=== PATIENT | female | born 1970 | race Two or more races ===

== ENCOUNTER 2016-09-14 15:15 | Emergency (ER) | payer BC ==
[~2016-09-14] VITALS: Ht 165.1 cm; Wt 86.2 kg
[2016-09-14 16:59] VITALS: BP 118/65
== END 2016-09-14 17:18 | disposition home or self-care (01) ==
LOC: ER 15:16
DX: J22 Unspecified acute lower respiratory infection (principal); Z88.5 Allergy status to narcotic agent; F17.200 Nicotine dependence, unspecified, uncomplicated
CPT/HCPCS: 71020; 87804; 99285; A4606; Z7610; 87400

== ENCOUNTER 2022-12-05 22:14 | Emergency (ER) | payer BC ==
[~2022-12-05] VITALS: Ht 165.1 cm; Wt 86.6 kg
--- NOTE | 2022-12-05 22:49 | NUR ---
PT BIBSELF C/O BILATERAL FEET SWELLING X 2 WEEKS. PT DENIES TRAUMA. PT AAOX4 BREATHING EVENLY AND UNLABORED. PT WALKS WITH SLIGHT LIMP, OTHERWISE STEADY GAIT. PT ATTACHED TO MONITOR AND POX. AT BEDSIDE.
--- NOTE | 2022-12-05 23:10 | NUR ---
LAB AT BEDSIDE
[2022-12-05 23:31] LABS: CALCIUM, SERUM 8.6 mg/dL (8.5-10.1); CREATININE 0.9 mg/dL (0.6-1.3); POTASSIUM 3.8 mmol/L (3.5-5.1)
--- NOTE | 2022-12-06 00:41 | NUR ---
Patient discharged to home in stable condition. Written and verbal after care instructions given. Patient verbalizes understanding of instruction. Pt ambulatory with a steady gait
[2022-12-06 00:46] VITALS: BP 135/72
== END 2022-12-06 00:48 | disposition home or self-care (01) ==
LOC: ER 22:17
DX: R60.0 Localized edema (principal); F17.200 Nicotine dependence, unspecified, uncomplicated; Z88.8 Allergy status to other drugs, medicaments and biological substances
CPT/HCPCS: 36415; 80048-TC; 83880